=== PATIENT | male | born 1960 | race Caucasian/White ===

== ENCOUNTER 2021-12-09 12:36 | Emergency (ER) | payer OTHER, MEDICAID, SELFPAY ==
[2021-12-09 12:56] VITALS: BP 180/86; PULSE 94; RESP 18; TEMP 37.8; O2SAT 96; BMI 26.6
[2021-12-09 13:31] LABS: COVID19 -Nasal RAPID POSITIVE (Negative)
[2021-12-09 14:28] VITALS: BP 188/86; PULSE 94; O2SAT 97
--- NOTE | 2021-12-09 14:36 | ED.HA ---
HPI - Headache General Chief Complaint: Headache Stated Complaint: headache, Time Seen by Provider: 12/09/21 14:36 Mode of arrival: Wheelchair History of Present Illness HPI Narrative: 61-year-old male smoker with a history of a bowel obstruction presents with a variety of symptoms including a generalized headache, runny nose, nasal congestion, sore throat and occasional dry cough. He states that he feels like his lungs are on fire. He denies any fever but states he has not been able to check his temperature. His headache is generalized and has been gradually worsening over the course of the week. He denies any neck pain. He denies any neurologic symptoms such as blurred vision or trouble speech. He has had no recent trauma or injury. He denies any obvious provocation or palliation. Related Data Previous Rx's Medication Instructions Recorded ketorolac 10 mg tablet 10 mg PO Q6H PRN #14 tab 12/09/21 ondansetron 4 mg disintegrating 4 mg PO TID-QID PRN #10 tab 12/09/21 tablet Allergies Allergy/AdvReac Type Severity Reaction Status Date / Time codeine [CODEINE] Allergy Intermediate RASH Unverified 03/01/18 11:57 naproxen [From NAPROSYN] Allergy Intermediate RASH. He Unverified 03/01/18 11:57 does okay with ibuprofen. steroids Allergy Unknown Uncoded 03/01/18 11:57 Review of Systems Review of Systems Narrative: GENERAL: D see HPI HEENT: See HPI RESPIRATORY: See HPI CARDIOVASCULAR: Denies chest pain, palpitations, orthopnea, edema, GASTROINTESTINAL: Denies nausea, vomiting, abdominal pain, diarrhea, constipation, melena. : Denies dysuria, frequency, incontinence, hematuria, urinary retention. MUSCULOSKELETAL: denies weakness, joint pain, or bony pain SKIN: Denies rash, skin lesions, or other NEUROLOGIC: See HPI PSYCHIATRIC: No concerning psychosocial issues. 12 point review of systems is negative except for those stated above Patient History Social History Smoking Status: Current every day smoker Smoking Status: Current every day smoker Substance Use Type: marijuana Exam Narrative Exam Narrative: GENERAL: [61] year old patient appears stated age. Well-developed patient, in mild distress. HEAD: Atraumatic. Normocephalic. EYES: Pupils equal round and reactive. Extraocular motions intact. No scleral icterus. No injection or drainage. ENT: Nose without bleeding, purulent drainage. Throat without erythema, tonsillar hypertrophy or exudate. Airway patent. NECK: Trachea midline. Non tender, no meningeal sign CARDIOVASCULAR: Regular rate and rhythm without murmurs, gallops, or rubs. RESPIRATORY: Clear to auscultation. Breath sounds equal bilaterally. No wheezes, rales, or rhonchi. GASTROINTESTINAL: Abdomen soft, non-tender, nondistended. EXTREMITIES: No edema or joint tenderness. BACK: Nontender without deformity or crepitance. No flank tenderness. NEURO: AOx3. SKIN: No rash or erythema of visible areas Initial Vital Signs Initial Vital Signs: Vital Signs Temperature 100.0 F H 12/09/21 12:56 Pulse Rate 94 H 12/09/21 12:56 Respiratory Rate 18 12/09/21 12:56 Blood Pressure 180/86 H 12/09/21 12:56 Pulse Oximetry 96 12/09/21 12:56 Course Orders Ordered: ED Orders 12/09/21 13:04 COVID19 -Nasal swab/Pre-Proc Stat Discontinued Medications Ketorolac Tromethamine (Ketorolac 30 Mg/Ml Vial) 30 mg IM NOW ONE Stop: 12/09/21 14:42 Last Admin: 12/09/21 14:52 Dose: 30 mg Documented by: MICHELLE Vital Signs Vital signs: Vital Signs - 8 hr 12/09/21 12:56 12/09/21 14:28 Temperature 100.0 F H Pulse Rate 94 H 94 H Respiratory Rate 18 Blood Pressure 180/86 H 188/86 H Pulse Oximetry 96 97 MDM - Headache Lab Data Labs: Lab Results 12/09/21 Range/Units 13:04 SARS-CoV-2 (PCR) Positive H (Negative) MDM Narrative Medical decision making narrative: Patient with a very reassuring history and physical exam. Vitals are reassuring, there is no increased work of breathing or hypoxemia. He has no meningeal signs, symptoms are well controlled any has a newly diagnosed COVID-19. Return precautions discussed and questions have been answered to his apparent satisfaction Discharge Plan Departure Patient Disposition: Home Clinical Impression: COVID-19 Instructions: DI for COVID-19 (Suspected or Confirmed ) Activity Restrictions/Additional Instructions: *You have been diagnosed with [ COVID-19] *What to do: * per recommendations from the CDC and the [facility] Department of Health * stay home except to get medical care. Restrict activities outside your home, except for getting medical care. Do not go to work, school, or public areas. Avoid using public transportation, ride sharing, or taxis. * separate yourself from other people in your home. * call ahead before visiting your doctor * Wear a facemask * Cover your coughs and sneezes * Clean your hands often * Avoid sharing household items * Clean all high-touch services every day * Monitor your symptoms and seek prompt medical attention if your illness is worsening, particularly with difficulty in breathing. You may discontinue your isolation when: 1. You have been fever-free for at least 24 hours without the use of fever reducing medication, AND 2. Your symptoms are getting better 3. At least 5 days have passed since symptoms first appeared 4. If you have fever, continue to stay home until fever resolves Individuals with laboratory confirmed COVID-19 who have not had any symptoms may discontinue home isolation when at least 5 days have passed since the date of their first COVID-19 diagnostic test and have had no subsequent illness Your family and friends that are fully immunized with a booster need to wear a mask around others for 10 days and should get tested on day 5 if possible. At any point if they become symptomatic they should get a test and stay home. Prescriptions: New ketorolac 10 mg tablet 10 mg PO Q6H PRN (Reason: pain) Qty: 14 0RF ondansetron 4 mg tablet,disintegrating 4 mg PO TID-QID PRN (Reason: nausea and vomiting) Qty: 10 0RF
[2021-12-09] MEDS: KETOROLAC 30 MG/ML VIAL IM (14:52)
== END 2021-12-09 14:57 | disposition home or self-care (01) ==
PROVIDERS: Emergency Provider Emergency Medicine
DX: U07.1 COVID-19 (principal); F17.200 Nicotine dependence, unspecified, uncomplicated
CPT/HCPCS: 87635; 96372; 99283; C9803; J1885